=== PATIENT | female | born 1970 | race Hispanic/Latino ===

== ENCOUNTER 2018-06-17 13:58 | Emergency (ER) | payer OTHER ==
--- NOTE | 2018-06-17 14:17 | Emergency Department Report ---
Chief Complaint: Upper Respiratory Infection Stated Complaint: CHEST CONGESTION/BRYAN Time Seen by Provider: 06/17/18 14:13 - HPI History of Present Illness: pt cough, congestion, and SOB that began two days ago +phlegm production pt states she smokes 1 PPD of cigarettes no fever + sick contact pt states she on methamphetamine, states she last used this morning, states she smoked it drinker, states she drinks a pint of liquor per day states she last had ETOH last night pt states she was in a detox program about 22 years ago pt would like to receive alcohol/drug counseling PMHx GERD, HTN states she has been taking her moms lisinopril about 4 per day MSE screening note: Focused history and physical exam performed. Due to findings the following was ordered: CXR, mental health protocol ED Disposition for MSE Condition: Stable
[2018-06-17 14:40] LABS: Basophils # (Auto) 0.1 K/mm3 (0.0-0.1); Basophils % (Auto) 0.7 % (0.0-1.8); Eosinophils # (Auto) 0.1 K/mm3 (0.0-0.4); Eosinophils % (Auto) 1.8 % (0.0-4.3); Hematocrit 42.3 % (30.3-42.9); Hemoglobin 14.2 gm/dl (10.1-14.3); Lymphocytes # (Auto) 1.1 K/mm3 (1.2-5.4); Lymphocytes % (Auto) 13.7 % (13.4-35.0); Mean Corpuscular HGB Conc 34 % (30-34); Mean Corpuscular Volume 89 fl (79-97); Monocytes # (Auto) 0.4 K/mm3 (0.0-0.8); Monocytes % (Auto) 5.1 % (0.0-7.3); Platelet Count 204 K/mm3 (140-440); Red Blood Count 4.76 M/mm3 (3.65-5.03); Red Cell Distribution Width 14.5 % (13.2-15.2)
[2018-06-17 15:03] LABS: Alanine Aminotransferase 13 units/L (7-56); Albumin 4.2 g/dL (3.9-5); BUN/Creatinine Ratio 11; Blood Urea Nitrogen 9 mg/dL (7-17); Calcium 8.8 mg/dL (8.4-10.2); Hemolysis Index 12
[2018-06-17] MEDS ORDERED: DUONEB *Not for PRN Use IH ONE (15:12)
[2018-06-17] MEDS ORDERED: SOLU-Medrol IV ONE (15:12)
[2018-06-17] MEDS ORDERED: ROCEPHIN/NS 1 GM/50 ML 1 GM/50 ML BAG IV ONE (15:12)
--- NOTE | 2018-06-17 15:14 | Emergency Department Report ---
ED General Adult HPI - General Chief complaint: Upper Respiratory Infection Stated complaint: CHEST CONGESTION/BRYAN Time Seen by Provider: 06/17/18 14:13 Source: patient Mode of arrival: Ambulatory Limitations: No Limitations - History of Present Illness Initial comments: Patient is a 47-year-old female that presents emergency room with complaints of chest congestion and cough 2 days. Patient states she is having wheezing as well. Patient states her symptoms are worsening. Patient states she has not seen a physician for this yet. Patient states that her symptoms are worse with exertion and deep breath. Patient denies fever and chills. Patient denies chest pain. Patient states she believes she has COPD. Patient states she also would like to be a violin for detox for alcohol and meth. Patient states her last use was yesterday. -: Sudden - Related Data Previous Rx's Medication Instructions Recorded Last Taken Type Doxycycline Hyclate [Doxycycline 100 mg PO Q12HR 10 Days #20 tab 06/17/18 Unknown Rx Hyclate TAB] methylPREDNISolone [Medrol] 4 mg PO DAILY 6 Days #1 tab.ds.pk 06/17/18 Unknown Rx Allergies Allergy/AdvReac Type Severity Reaction Status Date / Time No Known Allergies Allergy Verified 04/30/14 07:31 ED Review of Systems ROS: Stated complaint: CHEST CONGESTION/BRYAN Other details as noted in HPI Constitutional: denies: chills, fever Eyes: denies: eye pain, eye discharge, vision change ENT: denies: ear pain, throat pain Respiratory: cough, wheezing. denies: shortness of breath Cardiovascular: denies: chest pain, palpitations Endocrine: no symptoms reported Gastrointestinal: denies: abdominal pain, nausea, diarrhea Genitourinary: denies: urgency, dysuria, discharge Musculoskeletal: denies: back pain, joint swelling, arthralgia Skin: denies: rash, lesions Neurological: denies: headache, weakness, paresthesias Psychiatric: denies: anxiety, depression Hematological/Lymphatic: denies: easy bleeding, easy bruising ED Past Medical Hx - Past Medical History Previous Medical History?: Yes Hx Hypertension: Yes Hx Psychiatric Treatment: No Hx Asthma: Yes - Surgical History Past Surgical History?: Yes Additional Surgical History: Tonsillectomy - Family History Family history: no significant - Social History Smoking Status: Current Every Day Smoker Substance Use Type: Alcohol, Marijuana, Non Opiate Pain, Methamphetamines - Medications Home Medications: Home Medications Medication Instructions Recorded Confirmed Last Taken Type Doxycycline Hyclate [Doxycycline 100 mg PO Q12HR 10 Days #20 tab 06/17/18 Unknown Rx Hyclate TAB] methylPREDNISolone [Medrol] 4 mg PO DAILY 6 Days #1 tab.ds.pk 06/17/18 Unknown Rx ED Physical Exam - General Limitations: No Limitations General appearance: alert, in no apparent distress - Head Head exam: Present: atraumatic, normocephalic - Eye Eye exam: Present: normal appearance - ENT ENT exam: Present: mucous membranes moist - Neck Neck exam: Present: normal inspection - Respiratory Respiratory exam: Present: wheezes. Absent: respiratory distress - Cardiovascular Cardiovascular Exam: Present: regular rate, normal rhythm. Absent: systolic murmur, diastolic murmur, rubs, gallop - GI/Abdominal GI/Abdominal exam: Present: soft, normal bowel sounds. Absent: distended, tenderness, guarding - Extremities Exam Extremities exam: Present: normal inspection - Back Exam Back exam: Present: normal inspection - Neurological Exam Neurological exam: Present: alert, oriented X3 - Psychiatric Psychiatric exam: Present: normal affect, normal mood - Skin Skin exam: Present: warm, dry, intact, normal color. Absent: rash ED Course Vital Signs 06/17/18 06/17/18 06/17/18 14:13 15:33 15:44 Temperature 98.2 F Pulse Rate 96 H Pulse Rate [ 95 H 101 H Anterior Throughout] Respiratory 20 Rate Respiratory 18 18 Rate [Anterior Throughout] Blood Pressure 186/102 Blood Pressure [Left] O2 Sat by Pulse 100 Oximetry 06/17/18 06/17/18 15:45 17:49 Temperature 97.6 F Pulse Rate 98 H 76 Pulse Rate [ Anterior Throughout] Respiratory 18 18 Rate Respiratory Rate [Anterior Throughout] Blood Pressure Blood Pressure 147/112 150/100 [Left] O2 Sat by Pulse 99 Oximetry - Reevaluation(s) Reevaluation #1: She states she is feeling better. Patient has been evaluated by mental health for resources for detox. Lung sounds are clear. 06/17/18 16:10 Patient has not seen by mental health. Once patient is seen by mental health and Patient will be given resources, then patient will be discharged home. Patient stable for discharge. Patient's lung sounds are clear. Patient will be given steroids and antibiotics as an outpatient. Patient given discharge instructions. Patient patient voiced understanding of discharge instructions. 06/17/18 17:01 Also patient and gave the patient outpatient resources. Patient will be discharged home. Patient is medically cleared. 06/17/18 17:42 ED Medical Decision Making - Lab Data Result diagrams: 06/17/18 14:24 06/17/18 14:24 - EKG Data -: EKG Interpreted by Me EKG shows normal: sinus rhythm, axis, intervals, QRS complexes, ST-T waves Rate: normal - EKG Data Interpretation: other (pvc) - Radiology Data Radiology results: report reviewed, image reviewed PROCEDURE: XR CHEST ROUTINE 2V TECHNIQUE: Frontal and lateral views of the chest HISTORY: cough COMPARISONS: None. FINDINGS: The cardiac mediastinal silhouette is normal in appearance. The lungs are clear without focal consolidation. No pleural effusion or pneumothorax. No acute bony or soft tissue abnormality. IMPRESSION: No acute cardiopulmonary disease. - Medical Decision Making Patient is a 47-year-old female is emergency room with complaints of chest congestion and cough as well as desiring detox. Patient states that she wanted detox from methamphetamines and alcohol. Patient was seen by mental health and given resources. Patient's clinical findings are consistent with bronchitis. Patient responded well to treatment. Patient's lungs were clear upon discharge. Patient given discharge instructions. Patient instructed to follow up with her primary care in 2-3 days as well as go directly to a detox center for further evaluation and treatment. - Differential Diagnosis detox. Cough. URI. Bronchitis. Critical care attestation.: If time is entered above; I have spent that time in minutes in the direct care of this critically ill patient, excluding procedure time. ED Disposition Clinical Impression: Cough, Drug abuse and dependence, Wheeze, Bronchitis, Desire for detoxification Disposition: DC-01 TO HOME OR SELFCARE Is pt being admited?: No Does the pt Need Aspirin: No Condition: Stable Instructions: Acute Bronchitis (ED), Methamphetamine Abuse (ED), Polysubstance Abuse (ED), Medical Clearance for Substance Abuse Treatment (ED) Additional Instructions: Patient follow up with primary care in 2-3 days. Patient to return to ER if condition worsens. Patient to take Tylenol or ibuprofen when necessary for pain. Patient to rest. Patient to take meds as directed. Continue all home medications. Patient to increase water. Patient to follow up with detox center for further evaluation and treatment. Prescriptions: Doxycycline Hyclate [Doxycycline Hyclate TAB] 100 mg PO Q12HR 10 Days #20 tab methylPREDNISolone [Medrol] 4 mg PO DAILY 6 Days #1 tab.ds.pk Referrals: PRIMARY CARE, [Referring] - 3-5 Days Time of Disposition: 17:43
[2018-06-17 16:10] LABS: Bilirubin,Urine NEG (Negative); Color,Urine Yellow (Yellow)
[2018-06-17 16:11] LABS: Bacteria,Urine 1+ /HPF (Negative); Blood,Urine NEG (Negative); Protein,Urine <15 mg/dL mg/dL (Negative); Urobilinogen,Urine < 2.0 mg/dL (<2.0)
--- NOTE | 2018-06-17 16:13 | XRay Report ---
PROCEDURE: XR CHEST ROUTINE 2V TECHNIQUE: Frontal and lateral views of the chest HISTORY: cough COMPARISONS: None. FINDINGS: The cardiac mediastinal silhouette is normal in appearance. The lungs are clear without focal consolidation. No pleural effusion or pneumothorax. No acute bony or soft tissue abnormality. IMPRESSION: No acute cardiopulmonary disease. This document is electronically signed by Vero Soria MD., Jun 17 2018 04:11:00 PM ET
[2018-06-17 16:28] LABS: Benzodiazepines Screen,Urine PRESUMPTIVE NEGATIVE; Cannabinoid Screen,Urine PRESUMPTIVE NEGATIVE; Methadone Screen,Urine PRESUMPTIVE NEGATIVE; Opiate Screen,Urine PRESUMPTIVE NEGATIVE
[2018-06-17 16:50] LABS: Amphetamine Screen,Urine PRESUMPTIVE POSITIVE; Cocaine Screen,Urine PRESUMPTIVE POSITIVE
[2018-06-17 17:50] VITALS: BP 150/100
== END 2018-06-17 17:49 | disposition home or self-care (01) ==
LOC: ED 13:58
DX: J40 Bronchitis, not specified as acute or chronic (principal); F10.239 Alcohol dependence with withdrawal, unspecified; I10 Essential (primary) hypertension; J45.909 Unspecified asthma, uncomplicated; F17.200 Nicotine dependence, unspecified, uncomplicated; F12.10 Cannabis abuse, uncomplicated; F15.10 Other stimulant abuse, uncomplicated; Z90.49 Acquired absence of other specified parts of digestive tract
CPT/HCPCS: 36415; 71046; 80053; 80307; 81001; 84703; 85025; 93005; 93010; 94640; 96365; 96375; 99284; G0480; J0696; J2930; 80320

== ENCOUNTER 2019-03-27 03:46 | Inpatient (IN) | payer OTHER ==
[2019-03-27 04:54] LABS: Basophils # (Auto) 0.1 K/mm3 (0.0-0.1); Basophils % (Auto) 1.1 % (0.0-1.8); Eosinophils # (Auto) 0.1 K/mm3 (0.0-0.4); Eosinophils % (Auto) 0.7 % (0.0-4.3); Hematocrit 38.1 % (30.3-42.9); Hemoglobin 12.8 gm/dl (10.1-14.3); Lymphocytes # (Auto) 2.3 K/mm3 (1.2-5.4); Lymphocytes % (Auto) 22.9 % (13.4-35.0); Mean Corpuscular HGB Conc 34 % (30-34); Mean Corpuscular Volume 88 fl (79-97); Monocytes # (Auto) 0.9 K/mm3 (0.0-0.8); Monocytes % (Auto) 8.9 % (0.0-7.3); Platelet Count 261 K/mm3 (140-440); Red Blood Count 4.32 M/mm3 (3.65-5.03); Red Cell Distribution Width 14.3 % (13.2-15.2)
--- NOTE | 2019-03-27 05:02 | XRay Report ---
CHEST 2 VIEWS INDICATION / CLINICAL INFORMATION: BRYAN. COMPARISON: 06/17/2018 FINDINGS: SUPPORT DEVICES: None. HEART / MEDIASTINUM: There is enlargement of the cardiac silhouette LUNGS / PLEURA: There is increase in interstitial markings bilaterally this is more prominent in the lung bases and likely represents edema. There are very small bilateral pleural effusions. .No pneumot horax. ADDITIONAL FINDINGS: No significant additional findings. IMPRESSION: 1. There is mild pulmonary edema. There are very small bilateral pleural effusions. Enlargement of th e cardiac silhouette. Constellation of findings is characteristic of congestive heart failure. Signer Name: Girish Maurice MD Signed: 03/27/2019 4:57 AM Workstation Name: [id number]
[2019-03-27] MEDS ORDERED: IPRATROPIUM/ALBUTEROL SULFATE 3 ML AMPUL.NEB IH ONE ×2 (05:14)
[2019-03-27 05:40] LABS: Creatine Kinase MB 4.9 ng/mL (0.0-4.0)
[2019-03-27 05:43] LABS: Alanine Aminotransferase 79 units/L (7-56); BUN/Creatinine Ratio 13; Blood Urea Nitrogen 12 mg/dL (7-17); Calcium 9.5 mg/dL (8.4-10.2); Hemolysis Index 6
--- NOTE | 2019-03-27 06:10 | Emergency Department Report ---
ED Shortness of Breath HPI - General Chief Complaint: Dyspnea/Respdistress Stated Complaint: SOB COUGH Time Seen by Provider: 03/27/19 06:09 Source: patient Mode of arrival: Ambulatory Limitations: No Limitations - History of Present Illness MD Complaint: shortness of breath, cough -: Gradual, days(s) - Related Data Home Medications Medication Instructions Recorded Confirmed Last Taken No Known Home Medications [No 03/27/19 03/27/19 Unknown Reported Home Medications] Allergies Allergy/AdvReac Type Severity Reaction Status Date / Time No Known Allergies Allergy Verified 04/30/14 07:31 ED Review of Systems ROS: Stated complaint: SOB COUGH Other details as noted in HPI ED Past Medical Hx - Past Medical History Previous Medical History?: Yes Hx Hypertension: Yes Hx Psychiatric Treatment: No Hx Asthma: Yes - Surgical History Past Surgical History?: Yes Additional Surgical History: Tonsillectomy - Social History Smoking Status: Current Every Day Smoker Substance Use Type: Alcohol - Medications Home Medications: Home Medications Medication Instructions Recorded Confirmed Last Taken Type No Known Home Medications [No 03/27/19 03/27/19 Unknown History Reported Home Medications] ED Physical Exam - General Limitations: No Limitations ED Course Vital Signs 03/27/19 03/27/19 03/27/19 03:54 04:58 06:29 Temperature 97.8 F 97.7 F Pulse Rate 119 H 109 H 103 H Respiratory 20 23 Rate Blood Pressure 163/117 Blood Pressure 186/110 171/120 [Right] O2 Sat by Pulse 96 97 Oximetry ED Medical Decision Making - Lab Data Result diagrams: 03/27/19 04:40 03/27/19 04:40 Laboratory Results - last 24 hr 03/27/19 03/27/19 03/27/19 04:40 04:40 04:40 WBC 10.0 RBC 4.32 Hgb 12.8 Hct 38.1 MCV 88 MCH 30 MCHC 34 RDW 14.3 Plt Count 261 Lymph % (Auto) 22.9 [place] % (Auto) 8.9 H Eos % (Auto) 0.7 Baso % (Auto) 1.1 Lymph # 2.3 [place] # 0.9 H Eos # 0.1 Baso # 0.1 Seg Neutrophils % 66.4 Seg Neutrophils # 6.6 Sodium 144 Potassium 4.0 Chloride 102.1 Carbon Dioxide 27 Anion Gap 19 BUN 12 Creatinine 0.9 Estimated GFR > 60 BUN/Creatinine Ratio 13 Glucose 103 H Calcium 9.5 Total Bilirubin 0.30 AST 45 H ALT 79 H Alkaline Phosphatase 84 Total Creatine Kinase 126 CK-MB (CK-2) 4.9 H Troponin T < 0.010 NT-Pro-B Natriuret Pep 9493 H Total Protein 5.9 L Albumin 4.0 Albumin/Globulin Ratio 2.1 Critical care attestation.: If time is entered above; I have spent that time in minutes in the direct care of this critically ill patient, excluding procedure time. ED Disposition Condition: Stable Referrals: PRIMARY CARE, [Primary Care Provider] - 3-5 Days
[2019-03-27] MEDS ORDERED: FUROSEMIDE 40 MG/4 ML INJ IV ONE ×2 (06:12→14:27)
[2019-03-27 06:52] LABS: Bilirubin,Urine NEG (Negative); Blood,Urine NEG (Negative); Color,Urine Yellow (Yellow); Mucus,Urine FEW /HPF; Urobilinogen,Urine < 2.0 mg/dL (<2.0)
[2019-03-27 06:57] LABS: INR 1.17 (0.87-1.13)
[2019-03-27 06:58] LABS: Partial Thromboplastin Time 27.4 Sec. (24.2-36.6)
[2019-03-27 07:00] LABS: Benzodiazepines Screen,Urine PRESUMPTIVE NEGATIVE; Cannabinoid Screen,Urine PRESUMPTIVE NEGATIVE; Cocaine Screen,Urine PRESUMPTIVE NEGATIVE; Methadone Screen,Urine PRESUMPTIVE NEGATIVE; Opiate Screen,Urine PRESUMPTIVE NEGATIVE
--- NOTE | 2019-03-27 07:07 | Emergency Department Report ---
ED Chest Pain HPI - General Chief Complaint: Dyspnea/Respdistress Stated Complaint: SOB COUGH Time Seen by Provider: 03/27/19 06:09 Source: patient Mode of arrival: Ambulatory Limitations: No Limitations - History of Present Illness Initial Comments: 48-year-old female has had some occasional chest tightness but principally complains of shortness of breath. She states it is worse when she lays down flat and she has woken up in the middle of the night. Her symptoms have gotten worse over the past 2 days. She is noncompliant with her blood pressure medication. She also feels like she has gotten "swollen". She has had some nonproductive cough. She was given nebulized bronchodilators before I arrived and she states that they helped. She is found to be quite hypertensive. Her proBNP is nearly 10,000. She has been seen here before but not previously diagnosed with congestive heart failure. Review of the previous medical record does indicate previous history of hypertension and cocaine abuse. MD Complaint: chest pain -: Gradual, minutes(s) Onset: during rest Pain Location: substernal Pain Radiation: none Severity: mild Severity scale (0 -10): 3 Quality: tightness Consistency: intermittent Improves With: nothing Worsens With: nothing re: dyspnea Other Symptoms: cough. denies: fever, syncope Treatments Prior to Arrival: none Aspirin use within the Past 7 Days: (0) No - Related Data Home Medications Medication Instructions Recorded Confirmed Last Taken No Known Home Medications [No 03/27/19 03/27/19 Unknown Reported Home Medications] Allergies Allergy/AdvReac Type Severity Reaction Status Date / Time No Known Allergies Allergy Verified 04/30/14 07:31 Heart Score - HEART Score History: Moderately suspicious EKG: Non-specific Age: 45-65 Risk factors: > 3 risk factors or hx of atherosclerotic disease Troponin: < normal limit HEART Score: 5 - Critical Actions Critical Actions: 4-6 pts:12-16.6% risk of adverse cardiac event. Should be ad mitted ED Review of Systems ROS: Stated complaint: SOB COUGH Other details as noted in HPI Constitutional: denies: chills, fever Eyes: denies: eye pain, eye discharge, vision change ENT: denies: ear pain, throat pain Respiratory: cough, shortness of breath, SOB with exertion, SOB at rest, wheezing Cardiovascular: chest pain, edema. denies: palpitations Endocrine: no symptoms reported Gastrointestinal: denies: abdominal pain, nausea, diarrhea Genitourinary: denies: urgency, dysuria, discharge Musculoskeletal: denies: back pain, joint swelling, arthralgia Skin: denies: rash, lesions Neurological: denies: headache, weakness, paresthesias Psychiatric: denies: anxiety, depression Hematological/Lymphatic: denies: easy bleeding, easy bruising ED Past Medical Hx - Past Medical History Previous Medical History?: Yes Hx Hypertension: Yes Hx Psychiatric Treatment: No Hx Asthma: Yes - Surgical History Past Surgical History?: Yes Additional Surgical History: Tonsillectomy - Social History Smoking Status: Current Every Day Smoker Substance Use Type: Alcohol, Cocaine - Medications Home Medications: Home Medications Medication Instructions Recorded Confirmed Last Taken Type No Known Home Medications [No 03/27/19 03/27/19 Unknown History Reported Home Medications] ED Physical Exam - General Limitations: No Limitations General appearance: alert, in no apparent distress - Head Head exam: Present: atraumatic, normocephalic - Eye Eye exam: Present: normal appearance. Absent: scleral icterus - ENT ENT exam: Present: mucous membranes moist - Neck Neck exam: Present: normal inspection - Respiratory Respiratory exam: Present: normal lung sounds bilaterally. Absent: respiratory distress - Cardiovascular Cardiovascular Exam: Present: normal rhythm, tachycardia, S3, S4. Absent: systolic murmur, diastolic murmur, rubs, gallop - GI/Abdominal GI/Abdominal exam: Present: soft, normal bowel sounds. Absent: distended, tenderness, guarding, rebound, rigid - Extremities Exam Extremities exam: Present: full ROM, normal capillary refill, other (Trace leg edema). Absent: calf tenderness - Back Exam Back exam: Present: normal inspection - Neurological Exam Neurological exam: Present: alert, oriented X3, CN II-XII intact, normal gait. Absent: motor sensory deficit - Psychiatric Psychiatric exam: Present: normal affect, normal mood - Skin Skin exam: Present: warm, dry, intact, normal color. Absent: rash ED Course Vital Signs 03/27/19 03/27/19 03/27/19 03:54 04:58 06:00 Temperature 97.8 F 97.7 F Pulse Rate 119 H 109 H 105 H Respiratory 20 23 18 Rate Blood Pressure 182/109 Blood Pressure 186/110 171/120 [Right] O2 Sat by Pulse 96 97 96 Oximetry 03/27/19 03/27/19 06:29 07:00 Temperature Pulse Rate 103 H 101 H Respiratory 16 Rate Blood Pressure 163/117 163/113 Blood Pressure [Right] O2 Sat by Pulse 95 Oximetry - Reevaluation(s) Reevaluation #1: Patient was given labetalol and Lasix. She does not complain of chest pain. She is clinically stable. She has malignant hypertension and congestive heart failure. We will see if her urine tox is negative today. She meets criteria for admission for further evaluation of her new onset congestive heart failure/chest pain. 03/27/19 07:11 JADEN score - Jaden Score Age > 65: (0) No Aspirin use within the Past 7 Days: (0) No 3 or more CAD Risk Factors: (1) Yes 2 or more Angina events in past 24 hrs: (0) No Known CAD with more than 50% Stenosis: (0) No Elevated Cardiac Markers: (0) No ST Deviation Greater than 0.5mm: (1) Yes JADEN Score: 2 ED Medical Decision Making - Lab Data Result diagrams: 03/27/19 04:40 03/27/19 04:40 Laboratory Results - last 24 hr 03/27/19 03/27/19 03/27/19 04:40 04:40 04:40 WBC 10.0 RBC 4.32 Hgb 12.8 Hct 38.1 MCV 88 MCH 30 MCHC 34 RDW 14.3 Plt Count 261 Lymph % (Auto) 22.9 [place] % (Auto) 8.9 H Eos % (Auto) 0.7 Baso % (Auto) 1.1 Lymph # 2.3 [place] # 0.9 H Eos # 0.1 Baso # 0.1 Seg Neutrophils % 66.4 Seg Neutrophils # 6.6 PT INR APTT Sodium 144 Potassium 4.0 Chloride 102.1 Carbon Dioxide 27 Anion Gap 19 BUN 12 Creatinine 0.9 Estimated GFR > 60 BUN/Creatinine Ratio 13 Glucose 103 H Calcium 9.5 Total Bilirubin 0.30 AST 45 H ALT 79 H Alkaline Phosphatase 84 Total Creatine Kinase 126 CK-MB (CK-2) 4.9 H Troponin T < 0.010 NT-Pro-B Natriuret Pep 9493 H Total Protein 5.9 L Albumin 4.0 Albumin/Globulin Ratio 2.1 Urine Color Urine Turbidity Urine pH Ur Specific [place] Urine Protein Urine Glucose (UA) Urine Ketones Urine Blood Urine Nitrite Urine Bilirubin Urine Urobilinogen Ur Leukocyte Esterase Urine WBC (Auto) Urine RBC (Auto) U Epithel Cells (Auto) Urine Mucus Urine Opiates Screen Urine Methadone Screen Ur Barbiturates Screen Ur Phencyclidine Scrn U Benzodiazepines Scrn Urine Cocaine Screen U Marijuana (THC) Screen 03/27/19 03/27/19 03/27/19 04:40 06:39 06:39 WBC RBC Hgb Hct MCV MCH MCHC RDW Plt Count Lymph % (Auto) [place] % (Auto) Eos % (Auto) Baso % (Auto) Lymph # [place] # Eos # Baso # Seg Neutrophils % Seg Neutrophils # PT 15.1 H INR 1.17 H APTT 27.4 Sodium Potassium Chloride Carbon Dioxide Anion Gap BUN Creatinine Estimated GFR BUN/Creatinine Ratio Glucose Calcium Total Bilirubin AST ALT Alkaline Phosphatase Total Creatine Kinase CK-MB (CK-2) Troponin T NT-Pro-B Natriuret Pep Total Protein Albumin Albumin/Globulin Ratio Urine Color Yellow Urine Turbidity Clear Urine pH 6.0 Ur Specific [place] 1.011 Urine Protein 30 mg/dl Urine Glucose (UA) Neg Urine Ketones Neg Urine Blood Neg Urine Nitrite Neg Urine Bilirubin Neg Urine Urobilinogen < 2.0 Ur Leukocyte Esterase Neg Urine WBC (Auto) 1.0 Urine RBC (Auto) 3.0 U Epithel Cells (Auto) 9.0 Urine Mucus Few Urine Opiates Screen Presumptive negative Urine Methadone Screen Presumptive negative Ur Barbiturates Screen Presumptive negative Ur Phencyclidine Scrn Presumptive negative U Benzodiazepines Scrn Presumptive negative Urine Cocaine Screen Presumptive negative U Marijuana (THC) Screen Presumptive negative - EKG Data -: EKG Interpreted by Pr EKG shows normal: sinus rhythm Rate: tachycardia - EKG Data Interpretation: nonspecific ST-T wave kevin, other (Biatrial abnormality. RSR/mild intraventricular conduction delay) - Radiology Data Radiology results: report reviewed (Pulmonary edema), image reviewed Critical care attestation.: If time is entered above; I have spent that time in minutes in the direct care of this critically ill patient, excluding procedure time. ED Disposition Clinical Impression: Malignant hypertension Pulmonary edema Qualifiers: Chronicity: acute Qualified Code(s): J81.0 - Acute pulmonary edema Chest pain Qualifiers: Chest pain type: unspecified Qualified Code(s): R07.9 - Chest pain, unspecified Disposition: DC-09 OP ADMIT IP TO THIS HOSP Is pt being admited?: Yes Does the pt Need Aspirin: Yes Condition: Stable Instructions: Pulmonary Edema (ED), Hypertension (ED), Chest Pain (ED) Referrals: PRIMARY CARE, [Primary Care Provider] - 3-5 Days Time of Disposition: 07:12
[2019-03-27] MEDS ORDERED: ASPIRIN 325 MG TAB PO ONE (07:12)
[2019-03-27 07:13] LABS: Amphetamine Screen,Urine PRESUMPTIVE POSITIVE
[2019-03-27 08:47] LABS: Alanine Aminotransferase 74 units/L (7-56); Albumin 3.7 g/dL (3.9-5)
[2019-03-27 08:56] LABS: Bilirubin,Direct < 0.2 mg/dL (0-0.2)
--- NOTE | 2019-03-27 10:06 | History and Physical Report ---
History of Present Illness Date of examination: 03/27/19 Date of admission: 03/27/19 07:38 Chief complaint: SOB History of present illness: 48-year-old female with a past medical history of uncontrolled HTN, methamphetamine abuse, crack cocaine abuse, ETOH abuse, tobacco use presented to ER with c/o progressively worsening SOB, SEQUEIRA, orthopnea, BLE swelling, fatigue for about 3-4 days prior to arrival. She denies any chest pain, palpitations but c/o chest tightness and feels that she is running out of air and having dry cough. She admits that she was diagnosed with HTN several years ago while in nursing home but does not see doctors regularly and does not take medicaions due to lack of insurance. She denies any known prior HF, or HD. On Admission BP186/110, Pro-BNP elevated nearly 10,000, CXR c/w cardiomegaly and HF. She was given lasix in the Er and called for admission. Review of Systems Constitutional: denies: chills, fever Eyes: denies: eye pain, eye discharge, vision change ENT: denies: ear pain, throat pain Respiratory: cough, shortness of breath, SOB with exertion, SOB at rest, wheezing Cardiovascular: no chest pain but feels tightness, + edema. denies: palpitations Endocrine: no symptoms reported Gastrointestinal: denies: abdominal pain, nausea, diarrhea Genitourinary: denies: urgency, dysuria, discharge Musculoskeletal: denies: back pain, joint swelling, arthralgia Skin: denies: rash, lesions Neurological: denies: headache, weakness, paresthesias Psychiatric: denies: anxiety, depression Hematological/Lymphatic: denies: easy bleeding, easy bruising Past History Past Medical History: hypertension (untreated), other (asthma) Past Surgical History: tonsillectomy Social history: Lives alone (in a hotel ), other (cocaine and amphetamine abuse). denies: smoking, alcohol abuse Family history: hypertension Medications and Allergies Allergies Allergy/AdvReac Type Severity Reaction Status Date / Time No Known Allergies Allergy Verified 04/30/14 07:31 Home Medications Medication Instructions Recorded Confirmed Last Taken Type No Known Home Medications [No 03/27/19 03/27/19 Unknown History Reported Home Medications] Active Meds: Active Medications Amlodipine Besylate (Amlodipine) 10 mg PO QDAY DINO Furosemide (Lasix) 40 mg IV 0600,1800 [facility] Magnesium Sulfate (Magnesium Sulfate 2gm/50ml) 2 gm in 50 mls @ 25 mls/hr IV ONCE ONE Stop: 03/27/19 12:29 Metoprolol Tartrate (Metoprolol) 50 mg PO BID [facility] Exam - Physical Exam Narrative exam: GENERAL: well-developed and well-nourished white female lying on bed appeared to be in no discomfort. HEENT: Normocephalic. Atraumatic. No conjunctival congestion or icterus. Patient has moist mucous membranes. NECK: Supple. Trachea midline. CHEST/LUNGS: Positive crackles auscultated basis bilaterally, breathing nonlabored. No wheezes or rhonchi. HEART/CARDIOVASCULAR: Regular in rate and rhythm. S1 and S2 positive. ABDOMEN: Abdomen is soft, nontender. Patient has normal bowel sounds. SKIN: There is no rash. Warm and dry. NEURO: No focal motor deficit. Follows command. MUSCULOSKELETAL: No joint effusion or tenderness. EXTRIMITY: No edema, no cyanosis or clubbing. PSYCH: Cooperative. - Constitutional Vitals: Temp Pulse Resp BP Pulse Ox 97.7 F 101 H 16 191/138 95 03/27/19 04:58 03/27/19 07:00 03/27/19 07:00 03/27/19 09:01 03/27/19 09:01 Results - Labs CBC & Chem 7: 03/29/19 04:04 03/29/19 04:04 Labs: Abnormal lab results 03/27/19 03/27/19 03/27/19 Range/Units 04:40 04:40 04:40 [place] % (Auto) 8.9 H (0.0-7.3) % [place] # 0.9 H (0.0-0.8) K/mm3 PT 15.1 H (12.2-14.9) Sec. INR 1.17 H (0.87-1.13) Glucose 103 H (65-100) mg/dL Magnesium (1.7-2.3) mg/dL AST 45 H (5-40) units/L ALT 79 H (7-56) units/L CK-MB (CK-2) 4.9 H (0.0-4.0) ng/mL NT-Pro-B Natriuret Pep 9493 H (0-900) pg/mL Total Protein 5.9 L (6.3-8.2) g/dL Albumin (3.9-5) g/dL 03/27/19 Range/Units 07:57 [place] % (Auto) (0.0-7.3) % [place] # (0.0-0.8) K/mm3 PT (12.2-14.9) Sec. INR (0.87-1.13) Glucose (65-100) mg/dL Magnesium 1.60 L (1.7-2.3) mg/dL AST 42 H (5-40) units/L ALT 74 H (7-56) units/L CK-MB (CK-2) 5.0 H (0.0-4.0) ng/mL NT-Pro-B Natriuret Pep (0-900) pg/mL Total Protein 5.9 L (6.3-8.2) g/dL Albumin 3.7 L (3.9-5) g/dL - Imaging and Cardiology EKG: report reviewed (nonspecific ST-T wave kevin, other (Biatrial abnormality. RSR/mild intraventricular conduction delay)) Chest x-ray: report reviewed (pulmonary edema) Assessment and Plan Acute respiratory distress -Likely for underlying CHF exacerbation -Continue nasal cannula O2 as needed, diuresis with IV Lasix -Repeat chest x-ray in the morning Possible CHf exacerbation -Significantly elevated BNP -Patient also presented with malignant hypertension with history of cocaine and amphetamine abuse -Ordered for 2D echo -- admit to telemetry bed - monitor with serial CE and EKG - will place on Aspirin, statin, and Lasix IV - order 2D echo and consult cardiology following 2D echo result - cardiac diet now, daily weights, monitor in's and O's Chest pain/chest tightness, need to rule out ACS -Has JADEN score of 2, likely from uncontrolled BP and possible CHF -Continue on Aspirin, statin - as needed SL NTG and iv morphin for pain - Monitor BP, add betablocker and ACEI - order 2D echo and cardiology consult hypertensive malignancy -IV hydralazine as needed -Start on Norvasc beta-lucina and ACEI Drug abuse with amphetamine -UDS positive for amphetamine -Continue to monitor EKG - provide DVT Px with lovenox JADEN score Age > 65: (0) No Aspirin use within the Past 7 Days: (0) No 3 or more CAD Risk Factors: (1) Yes 2 or more Angina events in past 24 hrs: (0) No Known CAD with more than 50% Stenosis: (0) No Elevated Cardiac Markers: (0) No ST Deviation Greater than 0.5mm: (1) Yes JADEN Score: 2
[2019-03-27] MEDS ORDERED: MAGNESIUM SULFATE 2 GM/50 ML BAG IV ONE (10:30)
[2019-03-27] MEDS ORDERED: ONDANSETRON 4 MG/2 ML INJ IV PRN (10:40)
[2019-03-27] MEDS ORDERED: METOCLOPRAMIDE 10 MG TAB PO PRN (10:40)
[2019-03-27] MEDS ORDERED: hydrALAZINE 20 MG/1 ML INJ IV ONE (11:30)
[2019-03-27] MEDS: amLODIPine 10 MG TAB PO SCH (12:10)
[2019-03-27] MEDS: METOPROLOL TARTRATE 50 MG TAB PO SCH ×2 (12:10→21:54)
[2019-03-27] MEDS: FAMOTIDINE 10 MG TAB PO SCH ×2 (12:18→21:48)
[2019-03-27] MEDS: IPRATROPIUM/ALBUTEROL SULFATE 3 ML AMPUL.NEB IH SCH ×2 (13:21→20:36)
[2019-03-27] MEDS: ACETAMINOPHEN 325 MG TAB PO PRN (18:25)
[2019-03-27] MEDS: FUROSEMIDE 40 MG/4 ML INJ IV SCH (18:26)
[2019-03-27] MEDS: guaiFENesin ER 600 MG TAB PO SCH (18:26)
[2019-03-27] MEDS ORDERED: ALBUTEROL 2.5 MG/3 ML NEBU IH PRN (21:15)
[2019-03-27] MEDS: DOCUSATE SODIUM 100 MG CAP PO SCH (21:49)
[2019-03-27] MEDS: ENOXAPARIN 40 MG/0.4 ML INJ SUB-Q SCH (21:49)
[2019-03-28] MEDS: FUROSEMIDE 40 MG/4 ML INJ IV SCH ×2 (06:01→20:38)
[2019-03-28] MEDS: ACETAMINOPHEN 325 MG TAB PO PRN (06:06)
[2019-03-28] MEDS: IPRATROPIUM/ALBUTEROL SULFATE 3 ML AMPUL.NEB IH SCH ×3 (07:57→20:53)
[2019-03-28] MEDS: METOPROLOL TARTRATE 50 MG TAB PO SCH (09:41)
[2019-03-28] MEDS: guaiFENesin ER 600 MG TAB PO SCH ×2 (09:41→21:00)
[2019-03-28] MEDS: ASPIRIN EC 81 MG TAB PO SCH (09:41)
[2019-03-28] MEDS: FAMOTIDINE 10 MG TAB PO SCH ×2 (09:41→21:00)
[2019-03-28] MEDS: amLODIPine 10 MG TAB PO SCH (09:41)
[2019-03-28] MEDS: DOCUSATE SODIUM 100 MG CAP PO SCH ×2 (09:41→21:00)
--- NOTE | 2019-03-28 11:48 | Consultation ---
History of Present Illness Consult date: 03/28/19 Requesting physician: BERE GRULLON Consult reason: congestive heart failure History of present illness: The pt is a 48-year-old female with a past medical history of uncontrolled HTN, methamphetamine abuse, crack cocaine abuse, ETOH abuse, tobacco use. She is previously unknown to our practice. She presented with c/o progressively worsening SOB, SEQUEIRA, orthopnea, BLE swelling a fatigue for 4 days prior to arrival. She denies any chest pain, palpitations, n/v, diaphoresis, dizziness or syncope. She admits that she was diagnosed with HTN several years ago [place] but does not see doctors regularly and does not take medicaions due to lack of insurance. She denies any known prior HF, CAD, AMI or arrhythmia. Admission BP186/110. Pro-BNP elevated, CXR c/w cardiomegaly and HF. Pt reports that she got several doses of lasix overnight and is feeling much better today. Past History Past Medical History: hypertension (untreated) Past Surgical History: tonsillectomy Social history: Lives alone (in a hotel ), smoking, alcohol abuse, IV drug use (6-7 years ago), other (crack cocaine abuse, methamphetamine abuse) Family history: hypertension Medications and Allergies Allergies Allergy/AdvReac Type Severity Reaction Status Date / Time No Known Allergies Allergy Verified 04/30/14 07:31 Home Medications Medication Instructions Recorded Confirmed Last Taken Type No Known Home Medications [No 03/27/19 03/27/19 Unknown History Reported Home Medications] Active Meds: Active Medications Acetaminophen (Tylenol) 650 mg PO Q4H PRN PRN Reason: Pain MILD(1-3)/Fever >100.5/COTTER Last Admin: 03/28/19 06:06 Dose: 650 mg Documented by: Acetaminophen/Hydrocodone Bitart ([place] 5/325) 2 each PO Q6H PRN PRN Reason: Pain, Moderate (4-6) Albuterol (Proventil) 2.5 mg IH Q4HRT PRN PRN Reason: Shortness Of Breath Last Admin: 03/28/19 05:58 Dose: 2.5 mg Documented by: Albuterol/Ipratropium (Duoneb *Not For Prn Use*) 1 ampul IH TIDRT DINO Last Admin: 02/20/20 07:57 Dose: Not Given Documented by: Amlodipine Besylate (Amlodipine) 10 mg PO QDAY [facility] Last Admin: 03/28/19 09:41 Dose: 10 mg Documented by: Aspirin (Halfprin Ec) 81 mg PO QDAY [facility] Last Admin: 03/28/19 09:41 Dose: 81 mg Documented by: Atorvastatin Calcium (Lipitor) 40 mg PO QHS [facility] Last Admin: 03/27/19 21:49 Dose: 40 mg Documented by: Docusate Sodium (Colace) 100 mg PO BID [facility] Last Admin: 03/28/19 09:41 Dose: 100 mg Documented by: Enoxaparin Sodium (Enoxaparin) 40 mg SUB-Q QDAY@2200 [facility] Last Admin: 03/27/19 21:49 Dose: 40 mg Documented by: Famotidine (Pepcid) 10 mg PO BID [facility] Last Admin: 03/28/19 09:41 Dose: 10 mg Documented by: Furosemide (Lasix) 40 mg IV 0600,1800 [facility] Last Admin: 03/28/19 06:01 Dose: 40 mg Documented by: Guaifenesin (Mucinex Er) 600 mg PO BID [facility] Last Admin: 03/28/19 09:41 Dose: 600 mg Documented by: Sodium Chloride (Nacl 0.9% 500 Ml) 500 mls @ 50 mls/hr IV DIRECT [facility] Stop: 03/28/19 21:59 Lisinopril (Zestril) 10 mg PO QDAY [facility] Metoclopramide HCl (Reglan) 10 mg PO Q6H PRN PRN Reason: Nausea And Vomiting Metoprolol Tartrate (Metoprolol) 50 mg PO BID [facility] Last Admin: 03/28/19 09:41 Dose: 50 mg Documented by: Ondansetron HCl (Zofran) 4 mg IV Q8H PRN PRN Reason: N/V unrelieved by Reglan Pneumococcal Polyvalent Vaccine (Pneumovax 23) 0.5 ml IM .ONCE ONE Stop: 03/28/19 12:01 Review of Systems Constitutional: fatigue, no fever, no chills, no sweats Ears, nose, mouth and throat: no ear pain, no ear discharge, no nose pain, no nasal congestion, no sinus pressure, no sinus pain Cardiovascular: orthopnea, edema, shortness of breath, dyspnea on exertion, paroxysmal nocturnal dyspnea, high blood pressure, leg edema, decreased exercise tolerance, no chest pain, no palpitations, no rapid/irregular heart beat, no syncope, no lightheadedness Respiratory: cough, shortness of breath, dyspnea on exertion, no congestion, no wheezing, no pain on inspiration Gastrointestinal: no abdominal pain, no nausea, no vomiting, no diarrhea, no constipation, no change in bowel habits, no hematemesis Genitourinary Female: no pelvic pain, no flank pain, no dysuria, no urinary frequency, no urgency Musculoskeletal: no neck stiffness, no neck pain, no shooting arm pain, no arm numbness/tingling, no low back pain, no shooting leg pain Integumentary: no rash, no pruritis, no redness, no sores, no wounds Neurological: no head injury, no paralysis, no weakness, no parathesias, no numbness, no tingling, no seizures, no syncope Psychiatric: no anxiety Endocrine: no cold intolerance, no heat intolerance Hematologic/Lymphatic: no easy bruising, no easy bleeding Allergic/Immunologic: no urticaria Physical Examination Vital Signs Temp Pulse Resp BP Pulse Ox 97.8 F 119 H 20 186/110 96 03/27/19 03:54 03/27/19 03:54 03/27/19 03:54 03/27/19 03:54 03/27/19 03:54 General appearance: no acute distress HEENT: Positive: PERRL, Normocephaly, Mucus Membranes Moist Neck: Positive: neck supple, trachea midline Cardiac: Positive: Reg Rate and Rhythm, S1/S2 Lungs: Positive: Decreased Breath Sounds Neuro: Positive: Grossly Intact Abdomen: Negative: Tender Skin: Negative: Rash Musculoskeletal: No Pain Extremities: Present: +1 Edema (BLE) Results 03/27/19 04:40 03/27/19 04:40 - Imaging and Cardiology Echo: report reviewed EKG: report reviewed, image reviewed EKG interpretations - Telemetry EKG Rhythm: Sinus Rhythm - EKG Sinus rhythms and dysrhythmias: sinus rhythm Assessment and Plan tte reviewed - EF 25-30%, mild LVH, restrictive diastolic filling pattern, RV systolic function mildly reduced, RVSP 42mmHg. Initiate GDMT for HFrEF and cont IV lasix BID. Coronary angiography recommended to r/o ischemic CMP. Indications, potential risks and benefits of LHC reviewed with pt and she is agreeable to proceed with C in AM. NPO after MN. The patient has been seen in conjunction with Dr. Downey who agrees with the assessment and plan of care. - Patient Problems (1) Acute HFrEF (heart failure with reduced ejection fraction) Current Visit: Yes Status: Acute (2) Cardiomyopathy Current Visit: Yes Status: Chronic (3) Uncontrolled hypertension Current Visit: Yes Status: Chronic (4) History of crack cocaine use Current Visit: Yes Status: Chronic (5) History of methamphetamine use Current Visit: Yes Status: Chronic (6) Tobacco use Current Visit: Yes Status: Chronic (7) Alcohol abuse Current Visit: Yes Status: Chronic
[2019-03-28] MEDS ORDERED: FLU VACC QUAD 2019-20 (3 YR UP)/PF 60 MCG/0.5 ML SYRINGE IM ONE (12:00)
[2019-03-28] MEDS ORDERED: PNEUMOCOCCAL 23 Valent 0.5 ML VIAL IM ONE (12:00)
[2019-03-28] MEDS ORDERED: SODIUM CHLORIDE 0.9% 500 ML 500 ML IV SCH (12:00)
[2019-03-28] MEDS: LISINOPRIL 10 MG TAB PO SCH (12:01)
[2019-03-28] MEDS: ENOXAPARIN 40 MG/0.4 ML INJ SUB-Q SCH (21:00)
[2019-03-29 04:53] LABS: Basophils # (Auto) 0.1 K/mm3 (0.0-0.1); Basophils % (Auto) 1.3 % (0.0-1.8); Eosinophils # (Auto) 0.1 K/mm3 (0.0-0.4); Eosinophils % (Auto) 0.9 % (0.0-4.3); Hematocrit 43.7 % (30.3-42.9); Hemoglobin 14.4 gm/dl (10.1-14.3); Lymphocytes # (Auto) 2.3 K/mm3 (1.2-5.4); Lymphocytes % (Auto) 23.2 % (13.4-35.0); Mean Corpuscular HGB Conc 33 % (30-34); Mean Corpuscular Volume 88 fl (79-97); Monocytes # (Auto) 0.8 K/mm3 (0.0-0.8); Monocytes % (Auto) 7.7 % (0.0-7.3); Red Blood Count 4.98 M/mm3 (3.65-5.03); Red Cell Distribution Width 14.1 % (13.2-15.2)
[2019-03-29 04:54] LABS: Platelet Count 270 K/mm3 (140-440)
[2019-03-29 05:04] LABS: INR 1.22 (0.87-1.13)
[2019-03-29 05:17] LABS: BUN/Creatinine Ratio 21; Blood Urea Nitrogen 19 mg/dL (7-17); Calcium 9.2 mg/dL (8.4-10.2); Hemolysis Index 8
[2019-03-29] MEDS: FUROSEMIDE 40 MG/4 ML INJ IV SCH ×2 (06:42→17:36)
[2019-03-29] MEDS ORDERED: SODIUM CHLORIDE 0.9% 500 ML 500 ML ONE (08:04)
[2019-03-29] MEDS ORDERED: ASPIRIN EC 81 MG TAB PO ONE (08:05)
[2019-03-29] MEDS: ASPIRIN EC 81 MG TAB PO SCH (08:08)
[2019-03-29] MEDS ORDERED: HEPARIN 10,000 UNITS/10 ML VIAL ONE (08:59)
[2019-03-29] MEDS ORDERED: HEPARIN/NS 5000 UNIT/500ML 1,000 ML IR ONE (08:59)
[2019-03-29] MEDS ORDERED: VERAPAMIL 5 MG/2 ML INJ ONE ×2 (09:00→09:43)
[2019-03-29] MEDS ORDERED: LIDOCAINE (2%) 20 MG/1 ML VIAL 20 ML MDV INFILTRATI ONE (09:01)
[2019-03-29] MEDS: MIDAZOLAM 2 MG/2 ML INJ ONE ×2 (09:57→10:05)
[2019-03-29] MEDS: fentaNYL 100 MCG/2 ML INJ ONE ×2 (09:57→10:05)
[2019-03-29] MEDS ORDERED: METOPROLOL SUCCINATE XL 50 MG TAB PO SCH (10:00)
--- NOTE | 2019-03-29 10:15 | Progress Note ---
Assessment and Plan S/p C today which showed normal coronaries, NICMP. Cont present cardiac management. Cardiac defibrillator recommended in setting of NICMP and NSVT. Pt is agreeable to LifeVest at this time and will plan to evaluation AICD candidacy as OP. LifeVest ordered. The patient has been seen in conjunction with Dr. Downey who agrees with the as sessment and plan of care. - Patient Problems (1) Acute HFrEF (heart failure with reduced ejection fraction) Current Visit: Yes Status: Acute (2) NICM (nonischemic cardiomyopathy) Current Visit: Yes Status: Chronic (3) NSVT (nonsustained ventricular tachycardia) Current Visit: Yes Status: Acute (4) Uncontrolled hypertension Current Visit: Yes Status: Chronic (5) History of crack cocaine use Current Visit: Yes Status: Chronic (6) History of methamphetamine use Current Visit: Yes Status: Chronic (7) Tobacco use Current Visit: Yes Status: Chronic (8) Alcohol abuse Current Visit: Yes Status: Chronic Subjective Date of service: 03/29/19 Principal diagnosis: HF Interval history: pt for [facility] today. in [place] on tele with 5 beat run NSVT overnight, pt asymptomatic. Objective Last Vital Signs Temp 97.9 F 03/29/19 08:00 Pulse 79 03/29/19 08:00 Resp 15 03/29/19 08:00 BP 158/102 03/29/19 08:00 Pulse Ox 92 03/29/19 08:00 - Physical Examination General: No Apparent Distress HEENT: Positive: PERRL, Normocephaly, Mucus Membranes Moist Neck: Positive: neck supple, trachea midline Cardiac: Positive: Reg Rate and Rhythm, S1/S2 Lungs: Positive: Decreased Breath Sounds Neuro: Positive: Grossly Intact Abdomen: Negative: Tender Skin: Negative: Rash Musculoskeletal: No Pain Extremities: Present: +1 Edema (BLE) - Labs and Meds Coagulation 03/29/19 Range/Units 04:04 PT 15.6 H (12.2-14.9) Sec. INR 1.22 H (0.87-1.13) CBC 03/29/19 Range/Units 04:04 WBC 9.9 (4.5-11.0) K/mm3 RBC 4.98 (3.65-5.03) M/mm3 Hgb 14.4 H (10.1-14.3) gm/dl Hct 43.7 H (30.3-42.9) % Plt Count 270 (140-440) K/mm3 Lymph # 2.3 (1.2-5.4) K/mm3 [place] # 0.8 (0.0-0.8) K/mm3 Eos # 0.1 (0.0-0.4) K/mm3 Baso # 0.1 (0.0-0.1) K/mm3 Comprehensive Metabolic Panel 03/29/19 Range/Units 04:04 Sodium 142 (137-145) mmol/L Potassium 3.5 L (3.6-5.0) mmol/L Chloride 97.9 L (98-107) mmol/L Carbon Dioxide 28 (22-30) mmol/L BUN 19 H (7-17) mg/dL Creatinine 0.9 (0.7-1.2) mg/dL Glucose 107 H (65-100) mg/dL Calcium 9.2 (8.4-10.2) mg/dL - Imaging and Cardiology EKG: report reviewed, image reviewed Echo: report reviewed ( EF 25-30%, mild LVH, restrictive diastolic filling raman aubree, RV systolic function mildly reduced, RVSP 42mmHg. ) - Telemetry EKG Rhythm: Sinus Rhythm - EKG Sinus rhythms and dysrhythmias: sinus rhythm
--- NOTE | 2019-03-29 10:35 | Progress Note ---
Assessment and Plan Acute respiratory distress -due to underlying CHF exacerbation -Continue nasal cannula O2 as needed, cont diuresis with IV Lasix -Patient feeling slightly better today but remained symptomatic Acute systolic CHf exacerbation -Significantly elevated BNP, 2D echo showed EF of 25 to 30% with diffuse hypokinesis -Patient also presented with malignant hypertension with history of cocaine and amphetamine abuse -Continue on on Aspirin, statin, and Lasix IV - cardiac diet now, daily weights, monitor in's and O's -Consulted cardiology and plan for cardiac cath tomorrow Chest pain/chest tightness, need to rule out ACS -Has JADEN score of 2, likely from uncontrolled BP and possible CHF - Continue on Aspirin, statin - as needed SL NTG and iv morphin for pain - Monitor BP, cont betablocker and ACEI -We will follow cardiac cath results and cardiology recommendations hypertensive malignancy -IV hydralazine as needed -cont on Norvasc beta-lucina and ACEI -We will adjust oral medications to better control blood pressure Drug abuse with amphetamine -UDS positive for amphetamine -Monitored with serial EKG, cardiology consulted - provide DVT Px with lovenox Patient is full code Discussed plan of care with the RN Noted consultants recommendation JADEN score on admission Age > 65: (0) No Aspirin use within the Past 7 Days: (0) No 3 or more CAD Risk Factors: (1) Yes 2 or more Angina events in past 24 hrs: (0) No Known CAD with more than 50% Stenosis: (0) No Elevated Cardiac Markers: (0) No ST Deviation Greater than 0.5mm: (1) Yes JADEN Score: 2 Brief History: 48-year-old female with a past medical history of uncontrolled HTN, methamphetamine abuse, crack cocaine abuse, ETOH abuse, tobacco use presented to ER with c/o progressively worsening SOB, SEQUEIRA, orthopnea, BLE swelling, fatigue for about 3-4 days prior to arrival. She admits that she was diagnosed with HTN several years ago [facility] in [facility] but does not see doctors regularly and does not take medicaions due to lack of insurance. On Admission BP186/110, Pro-BNP elevated nearly 10,000, CXR c/w cardiomegaly and HF. She was given lasix in the Er and called for admission. Subjective Date of service: 03/28/19 Principal diagnosis: HF Interval history: Patient seen and examined. Medical records and medication list reviewed. No acute event overnight noted by the RN. Patient continued to complains of chest tightness and difficulty breathing minimal activities and also on rest. Patient is tolerating diet. Discussed plan of care at bedside with patient. Objective - Exam Narrative Exam: GENERAL: well-developed and well-nourished white female lying on bed appeared to be in no discomfort. HEENT: Normocephalic. Atraumatic. No conjunctival congestion or icterus. Patient has moist mucous membranes. NECK: Supple. Trachea midline. CHEST/LUNGS: Positive crackles auscultated basis bilaterally, breathing nonlabored. No wheezes or rhonchi. HEART/CARDIOVASCULAR: Regular in rate and rhythm. S1 and S2 positive. ABDOMEN: Abdomen is soft, nontender. Patient has normal bowel sounds. SKIN: There is no rash. Warm and dry. NEURO: No focal motor deficit. Follows command. MUSCULOSKELETAL: No joint effusion or tenderness. EXTRIMITY: No edema, no cyanosis or clubbing. PSYCH: Cooperative. - Constitutional Vitals: Vital Signs - 12hr 03/29/19 03/29/19 04:23 08:00 Temperature 98.7 F 97.9 F Pulse Rate 78 79 Respiratory 20 15 Rate Blood Pressure 168/103 Blood Pressure 158/102 [Right] O2 Sat by Pulse 96 92 Oximetry - Labs CBC & Chem 7: 03/29/19 04:04 03/29/19 04:04 Labs: Abnormal lab results 03/29/19 03/29/19 03/29/19 Range/Units 04:04 04:04 04:04 Hgb 14.4 H (10.1-14.3) gm/dl Hct 43.7 H (30.3-42.9) % [place] % (Auto) 7.7 H (0.0-7.3) % PT 15.6 H (12.2-14.9) Sec. INR 1.22 H (0.87-1.13) Potassium 3.5 L (3.6-5.0) mmol/L Chloride 97.9 L (98-107) mmol/L BUN 19 H (7-17) mg/dL Glucose 107 H (65-100) mg/dL
--- NOTE | 2019-03-29 10:51 | Cardiac Catherization Report ---
INDICATION FOR PROCEDURE: The patient is a 48-year-old white female who was admitted with increasing shortness of breath. She was noted to have a low ejection fraction of 20% on the echocardiogram. Because of low ejection fraction, coronary angiography was scheduled to rule out underlying coronary artery disease. The patient is explained of the procedure, potential complications and alternatives of therapy available. DESCRIPTION OF PROCEDURE: The patient was brought to the catheterization laboratory in a fasting condition. The patient was evaluated for moderate sedation. She was found to be appropriate candidate. Received IV Versed and fentanyl starting around 9:56 a.m. Subsequently, the patient was monitored throughout the procedure with pulse oximetry, EKG monitoring and hemodynamic monitoring for any side effects from moderate sedation. The patient was prepared in the standard fashion. Sterile drapes were applied. Local anesthesia was given in the right wrist area. Right radial artery puncture was made using 21-gauge arterial puncture needle. Subsequently, 5-Togolese slender sheath was introduced. A 5-Togolese multipurpose catheter was used to obtain the angiograms of the left ventricle done in MORALES projection using hand injection followed by angiograms of the right coronary artery. Subsequently, angiograms of the left coronary artery were obtained using a JL3.5 catheter. At the end of the procedure, catheter and sheath were removed and good hemostasis was achieved with the radial band. No untoward complications noted. The patient's moderate sedation monitoring ended at 10:15 a.m. At the end of the procedure, the patient is communicating normally, breathing normally and vital signs are stable and no focal deficit was noted. The patient was transferred to the room in stable condition. Following findings were noted. HEMODYNAMICS: 1. Opening aortic pressure 168/102. Left ventricular pressure 166/36. No gradient across the aortic valve. Estimated ejection fraction 30-35%. 2. Left ventriculogram done in MORALES projection showed left ventricular size to be upper limits of normal with moderate hypokinesis. Ejection fraction was found to be 30-35%. However, only limited amount of dye was injected and mitral regurgitation could not be evaluated. 3. Right coronary artery arises normally from right coronary cusp. Angiographically smooth and normal. 4. Left coronary artery arises normally from left coronary cusp. Left main, LAD and its branches, LAD curving around the apex, circumflex artery and its branch are angiographically smooth and normal. FINAL IMPRESSION: 1. Moderate diffuse hypokinesis of the left ventricle with left ventricular size upper limits of normal. Ejection fraction was felt to be 30-35%. 2. Normal coronary anatomy was noted. 3. The patient has elevated end diastolic pressure of 36 mmHg. At this time, the patient appears to have dilated cardiomyopathy, would continue risk factor modification and medical therapy. The patient tolerated the procedure well. No untoward side effects noted from moderate sedation. Good hemostasis was noted in the right wrist area. JOB# [id number] LETI/NTS
[2019-03-29] MEDS: IPRATROPIUM/ALBUTEROL SULFATE 3 ML AMPUL.NEB IH SCH ×3 (11:36→20:17)
[2019-03-29] MEDS: amLODIPine 10 MG TAB PO SCH (12:05)
[2019-03-29] MEDS ORDERED: HYDROcodone/ACETAMINOPHEN 5-325 MG TAB ONE (13:12)
[2019-03-29] MEDS: HYDROcodone/ACETAMINOPHEN 5-325 MG TAB PO PRN ×2 (13:12→21:20)
[2019-03-29] MEDS: guaiFENesin ER 600 MG TAB PO SCH ×2 (14:22→21:16)
[2019-03-29] MEDS: FAMOTIDINE 10 MG TAB PO SCH ×2 (14:22→21:16)
[2019-03-29] MEDS: DOCUSATE SODIUM 100 MG CAP PO SCH ×2 (14:22→21:16)
[2019-03-29] MEDS: LISINOPRIL 10 MG TAB PO SCH ×2 (14:23→21:17)
--- NOTE | 2019-03-29 15:48 | Progress Note ---
Assessment and Plan Acute respiratory distress -due to underlying CHF exacerbation -Continue nasal cannula O2 as needed, cont diuresis with IV Lasix -Patient feeling slightly better Acute systolic CHf exacerbation -Significantly elevated BNP, 2D echo showed EF of 25 to 30% with diffuse hypokinesis -Patient also presented with malignant hypertension with history of cocaine and amphetamine abuse -Continue on on Aspirin, statin, and Lasix IV - cardiac diet now, daily weights, monitor in's and O's -Consulted cardiology and s/p cardiac cath today which showed normal coronaries, NICMP. - Cardiac defibrillator recommended in setting of NICMP and NSVT. Pt is agreeable to LifeVest at this time and will plan to evaluation AICD candidacy as OP. LifeVest ordered by cardiology. Chest pain/chest tightness, need to rule out ACS -Has JADEN score of 2, likely from uncontrolled BP and possible CHF - Continue on Aspirin, statin - as needed SL NTG and iv morphin for pain - Monitor BP, cont betablocker and ACEI - cardiac cath showed normal coronaries hypertensive malignancy -IV hydralazine as needed -cont on Norvasc beta-lucina and ACEI -We will adjust oral medications to better control blood pressure Drug abuse with amphetamine -UDS positive for amphetamine -Monitored with serial EKG, cardiology consulted - provide DVT Px with lovenox Patient is full code Discussed plan of care with the RN Noted consultants recommendation 03/29/19: s/p cardiac cath JADEN score on admission Age > 65: (0) No Aspirin use within the Past 7 Days: (0) No 3 or more CAD Risk Factors: (1) Yes 2 or more Angina events in past 24 hrs: (0) No Known CAD with more than 50% Stenosis: (0) No Elevated Cardiac Markers: (0) No ST Deviation Greater than 0.5mm: (1) Yes JADEN Score: 2 Brief History: 48-year-old female with a past medical history of uncontrolled HTN, methamphetamine abuse, crack cocaine abuse, ETOH abuse, tobacco use presented to ER with c/o progressively worsening SOB, SEQUEIRA, orthopnea, BLE swelling, fatigue for about 3-4 days prior to arrival. She admits that she was diagnosed with HTN several years ago while in longterm but does not see doctors regularly and does not take medicaions due to lack of insurance. On Admission BP186/110, Pro-BNP elevated nearly 10,000, CXR c/w cardiomegaly and HF. She was given lasix in the Er and called for admission. Subjective Date of service: 03/29/19 Principal diagnosis: HF Interval history: Patient seen and examined. Medical records and medication list reviewed. No acute event overnight noted by the RN. s/p cardiac cath today, tolerated well Discussed plan of care at bedside with patient. Objective - Exam Narrative Exam: GENERAL: well-developed and well-nourished white female lying on bed appeared to be in no discomfort. HEENT: Normocephalic. Atraumatic. No conjunctival congestion or icterus. Patient has moist mucous membranes. NECK: Supple. Trachea midline. CHEST/LUNGS: no crackles auscultated basis bilaterally, breathing nonlabored. No wheezes or rhonchi. HEART/CARDIOVASCULAR: Regular in rate and rhythm. S1 and S2 positive. ABDOMEN: Abdomen is soft, nontender. Patient has normal bowel sounds. SKIN: There is no rash. Warm and dry. NEURO: No focal motor deficit. Follows command. MUSCULOSKELETAL: No joint effusion or tenderness. EXTRIMITY: No edema, no cyanosis or clubbing. PSYCH: Cooperative. - Constitutional Vitals: Vital Signs - 12hr 03/29/19 03/29/19 03/29/19 04:23 08:00 10:38 Temperature 98.7 F 97.9 F 97.6 F Pulse Rate 78 79 83 Pulse Rate [ Anterior Bilateral Throughout] Pulse Rate [ From Monitor] Respiratory 20 15 16 Rate Respiratory Rate [Anterior Bilateral Throughout] Blood Pressure 168/103 132/93 Blood Pressure 158/102 [Right] O2 Sat by Pulse 96 92 94 Oximetry 03/29/19 03/29/19 03/29/19 10:45 11:00 11:15 Temperature Pulse Rate 85 76 81 Pulse Rate [ Anterior Bilateral Throughout] Pulse Rate [ From Monitor] Respiratory 16 16 16 Rate Respiratory Rate [Anterior Bilateral Throughout] Blood Pressure 148/108 160/104 152/83 Blood Pressure [Right] O2 Sat by Pulse 93 99 97 Oximetry 03/29/19 03/29/19 03/29/19 11:30 12:00 12:05 Temperature Pulse Rate 82 83 78 Pulse Rate [ Anterior Bilateral Throughout] Pulse Rate [ From Monitor] Respiratory 20 22 Rate Respiratory Rate [Anterior Bilateral Throughout] Blood Pressure 140/77 167/96 167/96 Blood Pressure [Right] O2 Sat by Pulse 96 96 Oximetry 03/29/19 03/29/19 03/29/19 12:16 12:30 12:45 Temperature Pulse Rate 82 79 80 Pulse Rate [ Anterior Bilateral Throughout] Pulse Rate [ From Monitor] Respiratory 15 15 16 Rate Respiratory Rate [Anterior Bilateral Throughout] Blood Pressure 148/93 137/87 138/80 Blood Pressure [Right] O2 Sat by Pulse 95 96 95 Oximetry 03/29/19 03/29/19 03/29/19 13:06 13:12 13:44 Temperature Pulse Rate 88 Pulse Rate [ Anterior Bilateral Throughout] Pulse Rate [ From Monitor] Respiratory 16 18 16 Rate Respiratory Rate [Anterior Bilateral Throughout] Blood Pressure 129/71 Blood Pressure [Right] O2 Sat by Pulse 98 Oximetry 03/29/19 03/29/19 03/29/19 14:00 14:05 14:23 Temperature Pulse Rate 87 Pulse Rate [ 83 Anterior Bilateral Throughout] Pulse Rate [ 87 From Monitor] Respiratory 16 Rate Respiratory 20 Rate [Anterior Bilateral Throughout] Blood Pressure 151/100 Blood Pressure [Right] O2 Sat by Pulse 94 Oximetry - Labs CBC & Chem 7: 03/29/19 04:04 03/30/19 04:10 Labs: Abnormal lab results 03/29/19 03/29/19 03/29/19 Range/Units 04:04 04:04 04:04 Hgb 14.4 H (10.1-14.3) gm/dl Hct 43.7 H (30.3-42.9) % [place] % (Auto) 7.7 H (0.0-7.3) % PT 15.6 H (12.2-14.9) Sec. INR 1.22 H (0.87-1.13) Potassium 3.5 L (3.6-5.0) mmol/L Chloride 97.9 L (98-107) mmol/L BUN 19 H (7-17) mg/dL Glucose 107 H (65-100) mg/dL
[2019-03-29] MEDS: METOPROLOL SUCCINATE XL 50 MG TAB PO SCH (17:05)
[2019-03-29] MEDS: POTASSIUM CHLORIDE ER 20 MEQ TAB PO SCH (17:06)
[2019-03-29] MEDS: ENOXAPARIN 40 MG/0.4 ML INJ SUB-Q SCH (21:18)
[2019-03-30 05:30] LABS: BUN/Creatinine Ratio 26; Blood Urea Nitrogen 18 mg/dL (7-17); Calcium 8.8 mg/dL (8.4-10.2); Hemolysis Index 5
[2019-03-30] MEDS: FUROSEMIDE 40 MG/4 ML INJ IV SCH (06:21)
[2019-03-30] MEDS: IPRATROPIUM/ALBUTEROL SULFATE 3 ML AMPUL.NEB IH SCH ×2 (08:10→14:05)
[2019-03-30] MEDS: DOCUSATE SODIUM 100 MG CAP PO SCH (09:13)
[2019-03-30] MEDS: guaiFENesin ER 600 MG TAB PO SCH (09:13)
[2019-03-30] MEDS: POTASSIUM CHLORIDE ER 20 MEQ TAB PO SCH (09:14)
[2019-03-30] MEDS: ASPIRIN EC 81 MG TAB PO SCH (09:14)
[2019-03-30] MEDS: FAMOTIDINE 10 MG TAB PO SCH (09:14)
[2019-03-30] MEDS: METOPROLOL SUCCINATE XL 50 MG TAB PO SCH (09:15)
[2019-03-30] MEDS: LISINOPRIL 10 MG TAB PO SCH (09:16)
[2019-03-30] MEDS: amLODIPine 10 MG TAB PO SCH (09:16)
[2019-03-30 10:49] VITALS: BP 117/73
--- NOTE | 2019-03-30 11:53 | Progress Note ---
Assessment and Plan S/p LHC today which showed normal coronaries, NICMP. Cont present cardiac management. Cardiac defibrillator recommended in setting of NICMP and NSVT. Pt is agreeable to LifeVest at this time and will plan to evaluation AICD candidacy as OP. LifeVest ordered. 03/30/2019>Patient is comfortable,stable cardiac medina,once life vest is deli fide,may be discharged home on present medical therapy,and f/u as OP. Subjective Date of service: 03/30/19 Principal diagnosis: HF Interval history: Patient comfortable,no particular complaints,awaiting life vest placement. Objective Vital Signs Temp Pulse Pulse Pulse Pulse Resp Resp 03/30/19 10:48 98.0 F 66 18 03/30/19 09:16 87 03/30/19 09:15 87 03/30/19 09:14 74 03/30/19 08:44 56 L 03/30/19 08:33 87 87 15 03/30/19 08:11 78 18 03/30/19 08:10 03/30/19 07:21 98.0 F 77 18 03/30/19 00:44 97.9 F 63 18 03/29/19 22:00 78 80 18 03/29/19 21:17 73 03/29/19 19:55 98.2 F 70 18 03/29/19 17:05 89 03/29/19 15:47 98.2 F 75 18 03/29/19 14:23 87 03/29/19 14:05 87 16 03/29/19 14:00 83 20 03/29/19 13:44 16 03/29/19 13:12 18 03/29/19 13:06 88 16 03/29/19 12:45 80 16 03/29/19 12:30 79 15 03/29/19 12:16 82 15 03/29/19 12:05 78 03/29/19 12:00 83 22 BP Pulse Ox 03/30/19 10:48 117/73 95 03/30/19 09:16 145/95 03/30/19 09:15 145/95 03/30/19 09:14 145/95 99 03/30/19 08:44 03/30/19 08:33 97 03/30/19 08:11 03/30/19 08:10 96 03/30/19 07:21 152/107 98 03/30/19 00:44 120/69 96 03/29/19 22:00 98 03/29/19 21:17 145/98 03/29/19 19:55 145/98 97 03/29/19 17:05 149/97 03/29/19 15:47 135/89 96 03/29/19 14:23 151/100 03/29/19 14:05 94 03/29/19 14:00 03/29/19 13:44 03/29/19 13:12 03/29/19 13:06 129/71 98 03/29/19 12:45 138/80 95 03/29/19 12:30 137/87 96 03/29/19 12:16 148/93 95 03/29/19 12:05 167/96 03/29/19 12:00 167/96 96 - Physical Examination General: No Apparent Distress HEENT: Positive: PERRL, Normocephaly, Mucus Membranes Moist Neck: Positive: neck supple, trachea midline Cardiac: Positive: Reg Rate and Rhythm Neuro: Positive: Grossly Intact Abdomen: Negative: Tender Skin: Negative: Rash Incision: Cardiac Cath Site (unremarkable.) Musculoskeletal: No Pain Extremities: Present: +1 Edema (BLE) - Labs and Meds Comprehensive Metabolic Panel 03/30/19 Range/Units 04:10 Sodium 139 (137-145) mmol/L Potassium 3.7 (3.6-5.0) mmol/L Chloride 98.1 (98-107) mmol/L Carbon Dioxide 28 (22-30) mmol/L BUN 18 H (7-17) mg/dL Creatinine 0.7 (0.7-1.2) mg/dL Glucose 112 H (65-100) mg/dL Calcium 8.8 (8.4-10.2) mg/dL - Imaging and Cardiology EKG: report reviewed (nonspecific ST-T wave kevin, other (Biatrial abnormality. RSR/mild intraventricular conduction delay)) Echo: report reviewed ( EF 25-30%, mild LVH, restrictive diastolic filling pattern, RV systolic function mildly reduced, RVSP 42mmHg. ) - EKG Sinus rhythms and dysrhythmias: sinus rhythm
--- NOTE | 2019-03-30 14:26 | Discharge Summary ---
Providers - Providers Date of Admission: 03/28/19 10:28 Date of discharge: 03/30/19 Attending physician: BERE GRULLON 03/28/19 10:41 Consult to Physician [CONS] Routine Comment: Consulting Provider: CARL SELF Physician Instructions: Reason For Exam: acute CHF 03/29/19 10:24 Consult to Cardiac Rehabilitation [CONS] Routine Reason For Exam: Cardiac Rehab Evaluation Primary care physician: [employer]IS[employer] INSPECTOR Hospitalization Condition: Stable Pertinent studies: CXR 2d echo cardiac cath Hospital course: 48-year-old female with a past medical history of uncontrolled HTN, methamphetamine abuse, crack cocaine abuse, ETOH abuse, tobacco use presented to ER with c/o progressively worsening SOB, SEQUEIRA, orthopnea, BLE swelling, fatigue for about 3-4 days prior to arrival. She admits that she was diagnosed with HTN several years ago while in longterm but does not see doctors regularly and does not take medicaions due to lack of insurance. On Admission BP186/110, Pro-BNP elevated nearly 10,000, CXR c/w cardiomegaly and HF. She was given lasix in the ER and called for admission. Discharge diagnosis and Mx: Acute respiratory distress -due to underlying CHF exacerbation -Continue nasal cannula O2 as needed, cont diuresis with IV Lasix -Patient feeling slightly better Acute systolic CHf exacerbation -Significantly elevated BNP, 2D echo showed EF of 25 to 30% with diffuse hypokinesis -Patient also presented with malignant hypertension with history of cocaine and amphetamine abuse -Continue on on Aspirin, statin, and Lasix IV - cardiac diet now, daily weights, monitor in's and O's -Consulted cardiology and s/p cardiac cath which showed normal coronaries, NICMP . - Cardiac defibrillator recommended in setting of NICMP and NSVT. Pt is agreeable to LifeVest at this time and will plan to evaluation AICD candidacy as OP. LifeVest ordered by cardiology. Chest pain/chest tightness, need to rule out ACS -Has JADEN score of 2, likely from uncontrolled BP and possible CHF - Continue on Aspirin, statin - as needed SL NTG and iv morphin for pain - Monitor BP, cont betablocker and ACEI - cardiac cath showed normal coronaries hypertensive malignancy -IV hydralazine as needed -cont on Norvasc beta-lucina and ACEI -We will adjust oral medications to better control blood pressure Drug abuse with amphetamine -UDS positive for amphetamine -Monitored with serial EKG, cardiology consulted - provide DVT Px with lovenox Patient is full code Discussed plan of care with the RN Noted consultants recommendation 03/29/19: s/p cardiac cath JADEN score on admission Age > 65: (0) No Aspirin use within the Past 7 Days: (0) No 3 or more CAD Risk Factors: (1) Yes 2 or more Angina events in past 24 hrs: (0) No Known CAD with more than 50% Stenosis: (0) No Elevated Cardiac Markers: (0) No ST Deviation Greater than 0.5mm: (1) Yes JADEN Score: 2 Physical exam GENERAL: well-developed and well-nourished white female lying on bed appeared to be in no discomfort. HEENT: Normocephalic. Atraumatic. No conjunctival congestion or icterus. Patient has moist mucous membranes. NECK: Supple. Trachea midline. CHEST/LUNGS: no crackles auscultated basis bilaterally, breathing nonlabored. No wheezes or rhonchi. HEART/CARDIOVASCULAR: Regular in rate and rhythm. S1 and S2 positive. ABDOMEN: Abdomen is soft, nontender. Patient has normal bowel sounds. SKIN: There is no rash. Warm and dry. NEURO: No focal motor deficit. Follows command. MUSCULOSKELETAL: No joint effusion or tenderness. EXTRIMITY: No edema, no cyanosis or clubbing. PSYCH: Cooperative. Disposition: [id number] HOME UNDER HOME [facility] Time spent for discharge: 34 minutes Core Measure Documentation - Palliative Care Palliative Care/ Comfort Measures: Not Applicable - Core Measures Any of the following diagnoses?: none Exam - Constitutional Vitals: Temp Pulse Resp BP Pulse Ox 98.0 F 66 18 117/73 95 03/30/19 10:48 03/30/19 10:48 03/30/19 10:48 03/30/19 10:48 03/30/19 10:48 Plan Activity: advance as tolerated Weight Bearing Status: Non-Weight Bearing Diet: low fat, low salt Special Instructions: restrict fluid intake to (1.2 L daily) Follow up with: RADHA WATERMAN MD [Primary Care Provider] - 3-5 Days CARL SELF MD [Staff Physician] - 7 Days Prescriptions: AtorvaSTATin [Lipitor] 40 mg PO QHS #30 tablet amLODIPine 10 mg PO QDAY #30 tablet Aspirin EC [Halfprin EC] 81 mg PO QDAY #30 tablet Potassium Chloride [K-Dur] 20 meq PO QDAY #30 tablet Furosemide [Lasix TAB] 40 mg PO QDAY #30 tablet Metoprolol Xl [Metoprolol SUCCINATE ER TAB] 75 mg PO QDAY #60 tablet lisinopriL [Zestril TAB] 20 mg PO DAILY #30 tablet
== END 2019-03-30 16:10 | disposition home or self-care (01) | DRG 287 ==
LOC: ED 03:46 → 3A 07:38 → OBSVTOIN 03-28 10:28 → 4A 03-29 11:04
PROVIDERS: ADMIT Internal Medicine; ATTEND Internal Medicine
PROC: 3E0234Z Introduction of Serum, Toxoid and Vaccine into Muscle, Percutaneous Approach (ICD-10-PCS; 2019-03-28)
PROC: 4A023N7 Measurement of Cardiac Sampling and Pressure, Left Heart, Percutaneous Approach (ICD-10-PCS; principal; 2019-03-29)
PROC: B2111ZZ Fluoroscopy of Multiple Coronary Arteries using Low Osmolar Contrast (ICD-10-PCS; 2019-03-29)
PROC: B2151ZZ Fluoroscopy of Left Heart using Low Osmolar Contrast (ICD-10-PCS; 2019-03-29)
DX: I11.0 Hypertensive heart disease with heart failure (principal); I47.2 Ventricular tachycardia; I50.23 Acute on chronic systolic (congestive) heart failure; F17.200 Nicotine dependence, unspecified, uncomplicated; R06.03 Acute respiratory distress; F15.10 Other stimulant abuse, uncomplicated; I42.8 Other cardiomyopathies; F10.10 Alcohol abuse, uncomplicated; J45.909 Unspecified asthma, uncomplicated; F14.10 Cocaine abuse, uncomplicated; Z82.49 Family history of ischemic heart disease and other diseases of the circulatory system; Z23 Encounter for immunization
CPT/HCPCS: 36415; 71046; 80048; 80053; 80076; 80307; 81001; 82550; 82553; 82962; 83735; 83880; 84484; 85025; 85610; 85730; 87040; 87116; 90686; 90732; 93005; 93010; 93306; 93458; 94640; 94760; G0378; A9270-GY; C1894; J0360; J1644; J1650; J1940; J2250; J3010; J3475; J7040; Q9967